=== PATIENT | male | born 1970 | race American Indian/Alaskan Native ===

== ENCOUNTER 2022-06-01 14:36 | Inpatient (IN) | payer OTHER ==
[2022-06-01 14:51] VITALS: BMI 24.8
[2022-06-01] MEDS ORDERED: ONDANSETRON 4 MG/2 ML VIAL IVPUSH ONE (15:47)
[2022-06-01] MEDS ORDERED: SODIUM CHLORIDE 1,000 ML IV STA (15:47)
[2022-06-01] MEDS ORDERED: ONDANSETRON 4 MG/2 ML VIAL ONE (16:11)
[2022-06-01 16:54] LABS: BASO % 0.3 % (0-2.0); EOS % 1.1 % (0-4.5); HEMATOCRIT 47.8 % (35.4-49); HEMOGLOBIN 16.1 GM/dL (11.7-16.9); LYMPH % 15.2 % (8-40); MCH 27.1 pg (25.7-33.7); MCHC 33.7 g/dl (32.0-35.9); MEAN CELL VOLUME 80.4 fl (80-96); MEAN PLT VOLUME 12.8 fl (7.5-11.1); NEUT % 70.4 % (42.8-82.8); RBC 5.95 M/mm3 (4.00-5.60); RDW 15.4 % (11.9-15.9); WHITE BLOOD COUNT 8.6 K/mm3 (4.0-10.0)
[2022-06-01 17:00] LABS: INR 1.36 (0.83-1.09); PROTHROMBIN TIME (PATIENT) 15.7 SEC (9.7-13.0)
[2022-06-01 17:02] LABS: URINE APPEARANCE CLEAR; URINE BILIRUBIN 2+ (NEGATIVE); URINE COLOR DK YELLOW; URINE GLUCOSE (UA) NEGATIVE (NEGATIVE); URINE KETONE NEGATIVE (NEGATIVE); URINE LEUK ESTERASE NEGATIVE (NEGATIVE); URINE NITRITE NEGATIVE (NEGATIVE); URINE PROTEIN NEGATIVE (NEGATIVE); URINE UROBILINOGEN 0.2 mg/dL (0.2-1.0)
[2022-06-01 17:18] LABS: ALBUMIN 3.9 g/dl (3.4-5.0)
[2022-06-01 17:19] LABS: BLOOD UREA NITROGEN 15.3 mg/dL (7-18)
[2022-06-01 17:21] LABS: CREATININE 1.1 mg/dL (0.55-1.3)
[2022-06-01 17:23] LABS: BILIRUBIN,TOTAL 11.7 mg/dL (0.2-1); TOT PROT 8.1 g/dl (6.4-8.2)
[2022-06-01 17:27] LABS: BILIRUBIN,DIRECT 9.4 mg/dL (0.0-0.2)
[2022-06-01 17:39] LABS: PLATELET COUNT 152 10^3/uL (134-434); PLATELET ESTIMATE DECREASED
[2022-06-01] MEDS ORDERED: hydrOXYzine PAMOATE 50 MG CAPSULE (FP) PO ONE (21:31)
[2022-06-01] MEDS ORDERED: LACTATED RINGERS SOLUTION 1,000 ML/1,000 ML INFUS.BAG IV SCH (23:45)
[2022-06-01] MEDS ORDERED: URSODIOL 300 MG CAPSULE PO ONE ×2 (23:58)
[2022-06-01] MEDS ORDERED: diphenhydrAMINE HCL 25 MG CAPSULE (FP) PO ONE (23:58)
[2022-06-02] MEDS ORDERED: KETOROLAC TROMETHAMINE 10 MG TABLET PO ONE
[2022-06-02] MEDS ORDERED: IBUPROFEN 600 MG TABLET (FP) PO PRN (00:03)
[2022-06-02] MEDS ORDERED: diphenhydrAMINE HCL 25 MG CAPSULE (FP) PO ONE (01:00)
[2022-06-02] MEDS ORDERED: INSULIN SLIDING SCALE (NOVOLOG) 1 VIAL SQ SCH (07:00)
[2022-06-02] MEDS ORDERED: ENALAPRIL MALEATE 5 MG TABLET ONE (08:41)
[2022-06-02] MEDS ORDERED: ENOXAPARIN NA (PORCINE) 40 MG/0.4 ML DISP.SYRIN SQ ONE (08:41)
[2022-06-02 09:00] LABS: CALCIUM 8.9 mg/dL (8.5-10.1)
[2022-06-02 09:01] LABS: ALBUMIN 3.3 g/dl (3.4-5.0); BLOOD UREA NITROGEN 14.5 mg/dL (7-18); MAGNESIUM 1.7 mg/dL (1.8-2.4)
[2022-06-02 09:04] LABS: PHOSPHOROUS 2.4 mg/dL (2.5-4.9)
[2022-06-02 09:05] LABS: BILIRUBIN,TOTAL 11.6 mg/dL (0.2-1); TOT PROT 6.9 g/dl (6.4-8.2)
[2022-06-02 09:27] LABS: HEMATOCRIT 43.3 % (35.4-49); HEMOGLOBIN 14.5 GM/dL (11.7-16.9); MCHC 33.6 g/dl (32.0-35.9); MEAN CELL VOLUME 80.3 fl (80-96); MEAN PLT VOLUME 12.1 fl (7.5-11.1); RBC 5.39 M/mm3 (4.00-5.60); RDW 15.3 % (11.9-15.9); WHITE BLOOD COUNT 9.7 K/mm3 (4.0-10.0)
[2022-06-02 09:43] LABS: PLATELET COUNT 128 10^3/uL (134-434)
[2022-06-02] MEDS ORDERED: CHOLESTYRAMINE/ASPARTAME 4 GM PACKET PO SCH (10:00)
[2022-06-02] MEDS ORDERED: ENALAPRIL MALEATE 10 MG TABLET PO SCH (10:00)
[2022-06-02] MEDS ORDERED: ENOXAPARIN NA (PORCINE) 40 MG/0.4 ML DISP.SYRIN SQ SCH (10:00)
[2022-06-02 10:40] VITALS: RESP 16
[2022-06-02 12:36] VITALS: BP 114/79; PULSE 95; TEMP 98.7
== END 2022-06-02 12:42 | disposition short-term general hospital (02) | DRG 375 ==
LOC: JER 14:36 → JERBED 21:10
PROVIDERS: ADMIT Hospitalist; ATTEND Internal Medicine
DX: D49.0 Neoplasm of unspecified behavior of digestive system (principal); R17 Unspecified jaundice; R74.01 Elevation of levels of liver transaminase levels; E80.6 Other disorders of bilirubin metabolism; I10 Essential (primary) hypertension; E78.5 Hyperlipidemia, unspecified; E11.9 Type 2 diabetes mellitus without complications; L29.8 Other pruritus; K80.20 Calculus of gallbladder without cholecystitis without obstruction
CPT/HCPCS: 0241U-QW; 36415; 71046-TC-FY; 74181-TC; 76705-TC; 80053; 81003; 82140; 82248; 82962; 83605; 83690; 83735; 84100; 85025; 85027; 85610; 86704; 86708; 86803; 87040; 87086; 87186; 87517; 93005; 93010; 99285-25